=== PATIENT | female | born 1945 | race Caucasian/White ===

== ENCOUNTER 2018-04-10 15:36 | Emergency (ER) | payer OTHER ==
[~2018-04-10] VITALS: Ht 149.9 cm; Wt 50.8 kg
[~2018-04-10 15:36] MED LIST: ECOTRIN81 MG; LIPITOR40 MG; LOPRESSOR25 MG; NORVASC5 MG; PRILOSEC20 MG; PRINIVIL20 MG
== END 2018-04-11 00:47 | disposition home or self-care (01) ==
LOC: ER 15:36
DX: K52.89 Other specified noninfective gastroenteritis and colitis (principal)

== ENCOUNTER 2020-02-12 17:16 | Emergency (ER) | payer OTHER ==
[~2020-02-12] VITALS: Ht 149.9 cm; Wt 54.0 kg
== END 2020-02-12 21:00 | disposition home or self-care (01) ==
LOC: ER 17:16
DX: L03.032 Cellulitis of left toe (principal); M10.072 Idiopathic gout, left ankle and foot

== ENCOUNTER 2022-08-28 17:57 | Emergency (ER) | payer OTHER ==
[~2022-08-28] VITALS: Ht 149.9 cm; Wt 50.8 kg
[2022-08-28] MEDS ORDERED: ELIQUIS5 MG PO (18:37)
[2022-08-28] MEDS ORDERED: GABAPENTIN300 M2 PO (18:38)
[2022-08-28] MEDS ORDERED: METOPROLOL SUC100 MG PO (18:39)
[2022-08-28] MEDS ORDERED: AMIODARONE HCL200 MG PO (18:40)
[2022-08-28] MEDS ORDERED: NIFEDIPINE ER30 M1 PO (18:40)
[2022-08-28] MEDS ORDERED: METOPROLOL SUCC25 MG PO (18:40)
== END 2022-08-28 21:58 | disposition home or self-care (01) ==
LOC: ER 17:57
DX: E86.0 Dehydration (principal); I12.9 Hypertensive chronic kidney disease with stage 1 through stage 4 chronic kidney disease, or unspecified chronic kidney disease; N18.9 Chronic kidney disease, unspecified; Z20.822 Contact with and (suspected) exposure to COVID-19